=== PATIENT | male | born 1950 | race Hispanic/Latino ===

== ENCOUNTER 2017-03-16 09:22 | Observation (INO) | payer BC, MEDICARE, OTHER ==
[2017-03-14 10:44] LABS: BASOPHILS % 0.4 % (0.0-1.0); EOSINOPHILS # (AUTO) 0.2 (0.0-0.4); EOSINOPHILS % 2.3 % (0.0-6.0); HEMATOCRIT 39.3 % (38.2-49.6); HEMOGLOBIN 13.1 g/dL (14.0-18.0); LYMPHOCYTES # (AUTO) 2.1 (1.0-3.2); LYMPHOCYTES % 22.2 % (18.0-39.1); MEAN CORPUSCULAR HEMOGLOBIN 31.3 pg (28-32); MEAN CORPUSCULAR HGB CONC 33.3 g/dL (31-35); MEAN CORPUSCULAR VOLUME 93.8 fL (81-99); MONOCYTES # (AUTO) 0.9 (0.2-0.8); MONOCYTES % 8.9 % (4.4-11.3); NEUTROPHILS # (AUTO) 6.3 (2.1-6.9); NEUTROPHILS % 65.8 % (38.7-80.0); PLATELET COUNT 245 x10e3/uL (140-360); RED BLOOD COUNT 4.19 x10e6/uL (4.3-5.7); RED CELL DISTRIBUTION WIDTH 13.7 % (11.7-14.4)
[2017-03-14 10:55] LABS: INR 0.96; PROTHROMBIN TIME 13.3 seconds (11.9-14.5)
[2017-03-14 10:56] LABS: PARTIAL THROMBOPLASTIN TIME 28.8 seconds (23.8-35.5)
[2017-03-14 10:59] LABS: ANION GAP 14.1 mmol/L (8-16); BLOOD UREA NITROGEN 19 mg/dL (7-26); BUN/CREATININE RATIO 19 (6-25); CALCIUM 9.8 mg/dL (8.4-10.2); CARBON DIOXIDE 28 mmol/L (22-29); CHLORIDE 103 mmol/L (98-107); CREATININE, SERUM 0.98 mg/dL (0.72-1.25); EST GLOMERULAR FILTRATION RATE > 60 ML/MIN (60-); GLUCOSE 97 mg/dL (74-118); POTASSIUM 5.1 mmol/L (3.5-5.1); SODIUM 140 mmol/L (136-145)
--- NOTE | 2017-03-14 11:30 | Diagnostic Imaging Report ---
PROCEDURE: Frontal and lateral views of the chest. COMPARISON: Chest 2 views 01/06/2016. INDICATIONS: PREOPERATIVE CHEST XRAY FOR LUMBAR SPINE SURGERY FINDINGS: Lines/tubes: None. Lungs: The lungs are well inflated and clear. There is no evidence of pneumonia or pulmonary edema. Pleura: There is no pleural effusion or pneumothorax. Heart and mediastinum: The heart and the mediastinum are normal. Atherosclerotic calcifications. Bones: No acute bony abnormality. Degenerative changes of the thoracic spine. IMPRESSION: No acute radiographic abnormality. Dictated by: Bentley Patel M.D. on 03/14/2017 at 11:40 Electronically approved by: Bentley Patel M.D. on 03/14/2017 at 11:40
[~2017-03-16] VITALS: Ht 177.8 cm; Wt 85.3 kg
[~2017-03-16 09:22] MED LIST: ALLOPURINOL100 MG PO; AMLODIPINE BESYL5 MG PO; BENICAR40 MG PO; CRESTOR10 MG PO; ENABLEX15 MG PO; HYDROCHLOROTHIA25 MG PO; LIDOCAINE HCL (LTA) 4 ML SOLN ONE; LISINOPRIL10 MG PO; MELOXICAM7.5 MG PO; NORCO 7.5-3251 EACH PO; NORVASC5 MG PO; OXYBUTYNIN CHLOR5 MG PO
--- OUTSIDE RECORDS SUMMARY | 2017-03-16 09:24 | XMS REPORT ---
[facility] Address Unknown Phone Unavailable Care Team Providers Care Alternative Dispute Resolution Mediator Name Role Phone KELLEE TOBIAS Unavailable Unavailable Problems This patient has no known problems. Allergies, Adverse Reactions, Alerts This patient has no known allergies or adverse reactions. Medications This patient has no known medications. Results Test Description Test Time Test Comments Text Results Atomic Results Result Comments CHEST 2 VIEWS [place] [address] Patient Name: AZAM PRIETO MR #: [id number] : 1950 Age/Sex: 66/M Req # : [id number] Adm Physician: Ordered by: KELLEE TOBIAS MD Report #: [id number] Location: OR Room/Bed: Procedure: [id number] DX/CHEST 2 VIEWS Exam Date: 03/14/17 Exam Time: 1110 REPORT STATUS: Signed PROCEDURE: Frontal and lateral views of the chest. COMPARISON: Chest 2 views 01/06/2016. INDICATIONS: PREOPERATIVE CHEST XRAY FOR LUMBAR SPINE SURGERY FINDINGS: Lines/ tubes: None. Lungs: The lungs are well inflated and clear. There is no evidence of pneumonia or pulmonary edema. Pleura: There is no pleural effusion or pneumothorax. Heart and mediastinum: The heart and the mediastinum are normal. Atherosclerotic calcifications. Bones: No acute bony abnormality. Degenerative changes of the thoracic spine. IMPRESSION: No acute radiographic abnormality. Dictated by: Malika Patel M.D. on 03/14/2017 at 11:40 Electronically approved by: Malika Patel M.D. on 03/14/2017 at 11:40 Dictated By: MALIKA PATEL MD [id number] Transcribed By: BOB on 03/14/17 1140 COPY TO: KELLEE TOBIAS MD
[2017-03-16] MEDS ORDERED: CEFAZOLIN SOD 1 GM VIAL ONE (10:46)
[2017-03-16] MEDS ORDERED: LIDOCAINE 1% W/EPINEPHRINE 20 ML VIAL ONE (11:26)
[2017-03-16] MEDS ORDERED: THROMBIN FOR SOLN 5,000 UNIT VIAL ONE (11:26)
[2017-03-16] MEDS ORDERED: BACITRACIN 50,000 UNIT VIAL ONE (11:27)
[2017-03-16] MEDS ORDERED: GELATIN SPONGE SZ 100 ONE (12:01)
[2017-03-16] MEDS ORDERED: ONDANSETRON HCL INJ 2 MG/ML VIAL IV PRN (13:00)
[2017-03-16] MEDS ORDERED: HYDROMORPHONE 2MG/ML INJ IV PRN (13:00)
[2017-03-16] MEDS ORDERED: ACETAMINOPHEN 325 MG TAB PO PRN (13:00)
[2017-03-16] MEDS ORDERED: MORPHINE SULFATE 5 MG/ML VIAL IM PRN (13:00)
[2017-03-16] MEDS ORDERED: CARISOPRODOL 350 MG TAB PO PRN (13:00)
[2017-03-16] MEDS ORDERED: PROMETHAZINE HCL (IM) 25 MG/ML VIAL IM PRN (13:00)
[2017-03-16] MEDS ORDERED: MAGNESIUM/ALUMINUM/SIMETHICONE 30 ML UDC PO PRN (13:00)
[2017-03-16] MEDS ORDERED: OXYCODONE/ACETAMINOPHEN 5-325 1 EACH TABLET PO PRN (13:00)
--- NOTE | 2017-03-16 13:35 | Operative Report ---
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 PROCEDURE: Left L2-3 laminotomy, medial facetectomy, microsurgical lateral recess decompression, and microsurgical diskectomy, 30529. ANESTHESIA: General. INDICATIONS: The patient is a 66-year-old man who presents with left leg pain and is found to have left L2-3 lateral recess stenosis due to a combination of facet and ligamentous hypertrophy and a disk herniation. He was taken to the operating room for a microsurgical lateral recess decompression. PROCEDURE: After the induction of general anesthesia, the patient was placed on the operating table in prone position over a Jair frame. The lumbar region was prepped and draped in sterile fashion. A preoperative x-ray was obtained. A small midline incision was created. The lumbar fascia was opened to the left of midline, and a subperiosteal dissection was carried out to expose the left side of the L2 and L3 laminae and the medial aspect of the facet joint. A 2nd x-ray confirmed correct localization. The operating microscope was brought in. A high-speed drill equipped with a leandro bur was used to drill the inferior aspect of the lamina of L2, the superior aspect of the lamina of L3, and the medial aspect of the L2-3 facet joint on the left side. The markedly hypertrophic ligamentum flavum was carefully resected, and the dural sac and the L3 nerve root were fully exposed and decompressed. The L3 nerve root was then retracted medially, and the disk was inspected. A broad-based subligamentous disk herniation was noted. The posterior longitudinal ligament and the posterior annulus of the disk were incised with a number 11 blade. The herniated disk material was retrieved and removed. The loose contents of the L2-3 disk were evacuated with curettes and pituitary rongeurs. Meticulous hemostasis was secured. The retractor was removed. The lumbar fascia was closed with 0 Vicryl sutures. Subcutaneous layer was closed with 2-0 Vicryl sutures. The skin was closed with 3-0 Monocryl sutures in subcuticular fashion. Steri-Strips and a dressing were applied. The patient was awakened, extubated, and taken to the postanesthesia care unit in stable condition. No intraoperative complications were encountered. Estimated blood loss was 10 mL. Job#: [id number]
[2017-03-16] MEDS ORDERED: FENTANYL CITRATE/PF 100MCG/2 ML INJ ONE ×2 (13:42→18:30)
[2017-03-16] MEDS ORDERED: CEFAZOLIN SOD 1 GM/NS 50ML 50 ML IV SCH (14:00)
[2017-03-16] MEDS: LACTATED RINGER'S 1,000 ML IV SCH ×2 (14:10→21:35)
[2017-03-16 14:18] VITALS: BP 135/72
[2017-03-16 14:35] VITALS: BP 135/72
[2017-03-16 15:36] VITALS: BP 135/72
[2017-03-16] MEDS ORDERED: LIDOCAINE HCL 2% LOCAL INJ 5 ML SDV VIAL INJ ONE (18:21)
[2017-03-16] MEDS ORDERED: SEVOFLURANE INHAL SOLN 250 ML PEN BTL ONE (18:21)
[2017-03-16] MEDS ORDERED: DEXAMETHASONE SOD PHOS INJ 4 MG/ML VIAL ONE (18:21)
[2017-03-16] MEDS ORDERED: EPHEDRINE SULFATE INJ 50 MG/10 ML SYR ONE (18:21)
[2017-03-16] MEDS ORDERED: ONDANSETRON HCL INJ 2 MG/ML VIAL ONE (18:21)
[2017-03-16] MEDS ORDERED: NEOSTIGMINE 5 MG/5ML SYR ONE (18:21)
[2017-03-16] MEDS ORDERED: GLYCOPYRROLATE INJ 1MG/ 5 ML SYR ONE (18:21)
[2017-03-16] MEDS ORDERED: ROCURONIUM BROMIDE 10 MG/ML 5ML VIAL ONE (18:21)
[2017-03-16] MEDS ORDERED: PROPOFOL IV EMULSION 10 MG/ML 20 ML VIAL ONE (18:21)
[2017-03-16] MEDS ORDERED: MIDAZOLAM HCL 2 MG/2 ML VIAL ONE (18:30)
[2017-03-16 19:10] VITALS: BP 123/70
[2017-03-16 20:05] VITALS: BP 123/70
[2017-03-16] MEDS ORDERED: SIMVASTATIN 20 MG TAB PO SCH (21:00)
[2017-03-16] MEDS ORDERED: ZOLPIDEM TARTRATE 5 MG TAB PO PRN (21:00)
[2017-03-16] MEDS: CEFAZOLIN SOD 1 GM VIAL IV SCH (21:35)
[2017-03-17] VITALS: BP 112/58
[2017-03-17 03:30] VITALS: BP 111/66
[2017-03-17] MEDS: CEFAZOLIN SOD 1 GM VIAL IV SCH ×2 (03:41→11:22)
[2017-03-17] MEDS: LACTATED RINGER'S 1,000 ML IV SCH (06:09)
[2017-03-17 08:23] VITALS: BP 104/53
[2017-03-17] MEDS ORDERED: OXYBUTYNIN CHLORIDE 5 MG TAB PO SCH (09:00)
[2017-03-17] MEDS ORDERED: ALLOPURINOL 100 MG TAB PO SCH (09:00)
[2017-03-17] MEDS ORDERED: HYDROCHLOROTHIAZIDE 25 MG TAB PO SCH (09:00)
[2017-03-17] MEDS ORDERED: MELOXICAM 7.5 MG TAB PO SCH (09:00)
[2017-03-17] MEDS ORDERED: LISINOPRIL 10 MG TAB PO SCH (09:00)
[2017-03-17] MEDS ORDERED: SIMVASTATIN 40 MG TAB PO SCH (09:00)
[2017-03-17] MEDS ORDERED: OXYBUTYNIN CHLORIDE XL 5 MG TAB PO SCH (09:00)
[2017-03-17 09:01] VITALS: BP 104/53
== END 2017-03-17 11:34 | disposition home or self-care (01) ==
LOC: OR 09:22 → IMCU 13:58
PROVIDERS: ADMIT Neurological Surgery; ATTEND Neurological Surgery
DX: M48.062 Spinal stenosis, lumbar region with neurogenic claudication (principal); M51.26 Other intervertebral disc displacement, lumbar region; I10 Essential (primary) hypertension; E78.5 Hyperlipidemia, unspecified
CPT/HCPCS: 36415; 63047; 71046; 72020; 80048; 85025; 85610; 85730; 86850; 86900; 88304; 93005; G0378 ×2; J0690 ×2; J1100; J1170; J2001; J2250; J2270; J2405; J7120 ×2

== ENCOUNTER 2024-07-12 08:28 | Inpatient (IN) | payer MEDICARE ==
[2024-07-11 11:56] LABS: BASOPHILS % 0.2 % (0.0-1.0); EOSINOPHILS # (AUTO) 0.1 (0.0-0.4); EOSINOPHILS % 0.7 % (0.0-6.0); HEMATOCRIT 40.2 % (38.2-49.6); HEMOGLOBIN 13.1 g/dL (14.0-18.0); LYMPHOCYTES # (AUTO) 1.4 (1.0-3.2); LYMPHOCYTES % 8.3 % (18.0-39.1); MEAN CORPUSCULAR HEMOGLOBIN 31.6 pg (28-32); MEAN CORPUSCULAR HGB CONC 32.6 g/dL (31-35); MEAN CORPUSCULAR VOLUME 96.9 fL (81-99); MONOCYTES # (AUTO) 0.8 (0.2-0.8); NEUTROPHILS # (AUTO) 14.5 (2.1-6.9); NEUTROPHILS % 85.2 % (38.7-80.0); PLATELET COUNT 250 x10e3/uL (140-360); RED BLOOD COUNT 4.15 x10e6/uL (4.3-5.7); WHITE BLOOD COUNT 16.96 x10e3/uL (4.8-10.8)
[2024-07-11 12:17] LABS: ANION GAP 14.7 mmol/L (8-16); CALCIUM 9.6 mg/dL (8.4-10.2); CREATININE, SERUM 0.98 mg/dL (0.72-1.25); POTASSIUM 4.7 mmol/L (3.5-5.1)
[~2024-07-12] VITALS: Ht 175.3 cm; Wt 79.8 kg
[2024-07-12] VITALS (9 sets, daily range): BP systolic 121–146; BP diastolic 66–72; PULSE 54–78; RESP 14–18; TEMP 97.4–97.8; O2SAT 95–99
[~2024-07-12 08:28] MED LIST changes: +AMOXICILLIN250 MG PO; +COQ-10100 MG PO; +DICLOFENAC PO; +DIPHENHYDRAMINE25 MG PO; +FLOMAX0.4 MG PO; +GLUCOSAMINE1000 MG PO; +LASIX40 MG PO; -LIDOCAINE HCL (LTA) 4 ML SOLN ONE; +METOPROLOL SUCC50 MG PO; +NEURONTIN300 MG PO; +OMEGA 3 1,0001 EACH PO; +PREDNISONE20 MG PO; +TYLENOL325 MG PO; +VERAPAMIL ER120 M1 PO; +VIAGRA100 MG PO; +ZETIA10 MG PO
[2024-07-12] MEDS ORDERED: PROPOFOL IV EMULSION 10 MG/ML 20 ML VIAL ONE (09:09)
[2024-07-12] MEDS ORDERED: LIDOCAINE HCL 2% LOCAL INJ 5 ML SDV VIAL INJ ONE (09:10)
[2024-07-12] MEDS ORDERED: FENTANYL CITRATE/PF 100MCG/2 ML INJ ONE (09:10)
[2024-07-12] MEDS: SODIUM CHLORIDE 0.9% 1000ML 1,000 ML ONE (09:16)
[2024-07-12] MEDS: CEFTRIAXONE 1 GM VIAL ONE (09:17)
[2024-07-12] MEDS: GENTAMICIN 80MG/NS 100 ML 200 ML IV ONE (09:17)
[2024-07-12] MEDS ORDERED: ROCURONIUM BROMIDE 1 ML IV ONE ×2 (10:50→11:36)
[2024-07-12] MEDS ORDERED: DEXAMETHASONE SOD PHOS INJ 4 MG/ML SDV ONE (11:05)
[2024-07-12] MEDS ORDERED: ONDANSETRON HCL INJ 2MG/ML 2ML 2 MG/ML VIAL ONE (11:05)
[2024-07-12] MEDS ORDERED: FAMOTIDINE 20 MG/2 ML VIAL IV ONE (11:07)
[2024-07-12] MEDS ORDERED: ACETAMINOPHEN 1000 MG/100 ML 100 ML IV ONE (11:17)
[2024-07-12] MEDS: SODIUM CHLORIDE 0.9% 1000ML 1,000 ML IV SCH (12:30)
[2024-07-12] MEDS ORDERED: DIPHENHYDRAMINE HCL 25 MG CAP PO PRN (12:30)
[2024-07-12] MEDS ORDERED: ACETAMINOPHEN 1000 MG/100 ML IV PRN (12:30)
[2024-07-12] MEDS ORDERED: ONDANSETRON HCL INJ 2MG/ML 2ML 2 MG/ML VIAL IV PRN (12:30)
[2024-07-12] MEDS: FENTANYL CITRATE/PF 100MCG/2 ML INJ ONE (12:34)
[2024-07-12] MEDS ORDERED: SUGAMMADEX SODIUM 200 MG/2 ML VIAL IV ONE ×2 (12:45)
[2024-07-12 12:55] LABS: BASOPHILS % 0.2 % (0.0-1.0); EOSINOPHILS # (AUTO) 0.1 (0.0-0.4); EOSINOPHILS % 0.8 % (0.0-6.0); HEMATOCRIT 32.9 % (38.2-49.6); HEMOGLOBIN 10.6 g/dL (14.0-18.0); LYMPHOCYTES # (AUTO) 1.4 (1.0-3.2); LYMPHOCYTES % 16.2 % (18.0-39.1); MEAN CORPUSCULAR HEMOGLOBIN 31.2 pg (28-32); MEAN CORPUSCULAR HGB CONC 32.2 g/dL (31-35); MEAN CORPUSCULAR VOLUME 96.8 fL (81-99); MONOCYTES # (AUTO) 0.5 (0.2-0.8); MONOCYTES % 5.8 % (4.4-11.3); NEUTROPHILS # (AUTO) 6.6 (2.1-6.9); NEUTROPHILS % 76.7 % (38.7-80.0); PLATELET COUNT 188 x10e3/uL (140-360); RED CELL DISTRIBUTION WIDTH 14.3 % (11.7-14.4); WHITE BLOOD COUNT 8.58 x10e3/uL (4.8-10.8)
[2024-07-12 13:15] LABS: ANION GAP 12.2 mmol/L (8-16); CALCIUM 7.6 mg/dL (8.4-10.2); CREATININE, SERUM 0.77 mg/dL (0.72-1.25); POTASSIUM 4.2 mmol/L (3.5-5.1)
[2024-07-12] MEDS ORDERED: SEVOFLURANE INHAL SOLN 250 ML PEN BTL ONE (13:19)
[2024-07-12] MEDS: ACETAMINOPHEN/CODEINE 300MG - 30MG TAB PO PRN (15:42)
[2024-07-12] MEDS: SENNA-S TABLET PO SCH (17:02)
[2024-07-12] MEDS ORDERED: DICLOFENAC35 MG (19:21)
[2024-07-12] MEDS ORDERED: DICYCLOMINE HCL10 MG PO (19:21)
[2024-07-12] MEDS ORDERED: MELATONIN3 MG PO (19:21)
[2024-07-12] MEDS: PHENAZOPYRIDINE HCL 100 MG TAB PO PRN (20:26)
[2024-07-13] VITALS (9 sets, daily range): BP systolic 116–159; BP diastolic 60–75; PULSE 45–67; RESP 15–20; TEMP 94.9–98.8; O2SAT 92–100
[2024-07-13 08:07] LABS: BASOPHILS % 0.3 % (0.0-1.0); EOSINOPHILS # (AUTO) 0.1 (0.0-0.4); EOSINOPHILS % 0.4 % (0.0-6.0); HEMATOCRIT 33.6 % (38.2-49.6); HEMOGLOBIN 11.1 g/dL (14.0-18.0); LYMPHOCYTES # (AUTO) 1.1 (1.0-3.2); MEAN CORPUSCULAR HEMOGLOBIN 31.4 pg (28-32); MEAN CORPUSCULAR VOLUME 95.2 fL (81-99); MONOCYTES % 8.5 % (4.4-11.3); NEUTROPHILS # (AUTO) 9.8 (2.1-6.9); NEUTROPHILS % 81.3 % (38.7-80.0); PLATELET COUNT 217 x10e3/uL (140-360); RED BLOOD COUNT 3.53 x10e6/uL (4.3-5.7)
[2024-07-13 08:26] LABS: ANION GAP 12.7 mmol/L (8-16); CALCIUM 8.5 mg/dL (8.4-10.2); CREATININE, SERUM 0.82 mg/dL (0.72-1.25); POTASSIUM 4.7 mmol/L (3.5-5.1)
[2024-07-13] MEDS ORDERED: PREDNISONE10 MG PO (08:55)
[2024-07-13] MEDS: PREDNISONE 10 MG TAB PO SCH (10:38)
[2024-07-13] MEDS: DICYCLOMINE HCL 10 MG CAP PO SCH (10:38)
[2024-07-13] MEDS: ACETAMINOPHEN 325 MG TAB PO SCH (16:13)
[2024-07-13] MEDS: TAMSULOSIN HCL 0.4 MG CAP PO SCH (16:13)
[2024-07-13] MEDS ORDERED: MELATONIN 3 MG TAB PO SCH (21:00)
[2024-07-13] MEDS: VERAPAMIL HCL 120 MG TABSR PO SCH (21:15)
[2024-07-13] MEDS: GABAPENTIN 300 MG CAP PO SCH (21:16)
[2024-07-13] MEDS: MELATONIN 3 MG TAB PO SCH (21:16)
[2024-07-14] VITALS (11 sets, daily range): BP systolic 140–170; BP diastolic 66–84; PULSE 55–67; RESP 16–20; TEMP 97.5–98; O2SAT 92–100
[2024-07-14 08:15] LABS: BASOPHILS % 0.2 % (0.0-1.0); EOSINOPHILS # (AUTO) 0.4 (0.0-0.4); EOSINOPHILS % 3.6 % (0.0-6.0); HEMATOCRIT 34.8 % (38.2-49.6); HEMOGLOBIN 11.5 g/dL (14.0-18.0); LYMPHOCYTES # (AUTO) 1.8 (1.0-3.2); MEAN CORPUSCULAR HEMOGLOBIN 31.3 pg (28-32); MEAN CORPUSCULAR VOLUME 94.8 fL (81-99); MONOCYTES # (AUTO) 1.1 (0.2-0.8); MONOCYTES % 10.4 % (4.4-11.3); NEUTROPHILS # (AUTO) 7.3 (2.1-6.9); NEUTROPHILS % 68.1 % (38.7-80.0); PLATELET COUNT 215 x10e3/uL (140-360); RED BLOOD COUNT 3.67 x10e6/uL (4.3-5.7); WHITE BLOOD COUNT 10.75 x10e3/uL (4.8-10.8)
[2024-07-14] MEDS: OXYBUTYNIN CHLORIDE 5 MG TAB PO SCH (08:17)
[2024-07-14 08:39] LABS: ANION GAP 12.5 mmol/L (8-16); CALCIUM 8.9 mg/dL (8.4-10.2); CREATININE, SERUM 0.82 mg/dL (0.72-1.25); POTASSIUM 4.5 mmol/L (3.5-5.1)
[2024-07-14] MEDS ORDERED: MAGNESIUM HYDROXIDE 30 ML UDC PO PRN (10:15)
[2024-07-14] MEDS: POLYETHYLENE GLYCOL 3350 17 GM PACK PO SCH (10:32)
[2024-07-14] MEDS: VALSARTAN 80 MG TAB PO SCH (10:32)
[2024-07-14] MEDS: SIMVASTATIN 20 MG TAB PO SCH (21:09)
[2024-07-15] VITALS (9 sets, daily range): BP systolic 148–176; BP diastolic 78–92; PULSE 58–91; RESP 16–20; TEMP 97.7–98.1; O2SAT 95–100
[2024-07-15 05:31] LABS: BASOPHILS % 0.3 % (0.0-1.0); EOSINOPHILS # (AUTO) 0.3 (0.0-0.4); EOSINOPHILS % 3.1 % (0.0-6.0); HEMATOCRIT 35.2 % (38.2-49.6); HEMOGLOBIN 11.9 g/dL (14.0-18.0); LYMPHOCYTES # (AUTO) 2.2 (1.0-3.2); LYMPHOCYTES % 21.8 % (18.0-39.1); MEAN CORPUSCULAR HEMOGLOBIN 31.6 pg (28-32); MEAN CORPUSCULAR HGB CONC 33.8 g/dL (31-35); MEAN CORPUSCULAR VOLUME 93.6 fL (81-99); MONOCYTES # (AUTO) 1.1 (0.2-0.8); MONOCYTES % 11.3 % (4.4-11.3); NEUTROPHILS # (AUTO) 6.3 (2.1-6.9); NEUTROPHILS % 62.9 % (38.7-80.0); PLATELET COUNT 215 x10e3/uL (140-360); RED BLOOD COUNT 3.76 x10e6/uL (4.3-5.7)
[2024-07-15 06:05] LABS: ANION GAP 12.6 mmol/L (8-16); CALCIUM 8.9 mg/dL (8.4-10.2); CREATININE, SERUM 0.84 mg/dL (0.72-1.25); POTASSIUM 4.6 mmol/L (3.5-5.1)
[2024-07-15] MEDS: EZETIMIBE 10 MG TAB PO SCH (09:46)
== END 2024-07-15 20:15 | disposition home or self-care (01) | DRG 713 ==
LOC: OR 08:28 → PACU V 13:04 → MED/SURG 14:31
PROVIDERS: ADMIT Internal Medicine; ATTEND Internal Medicine
PROC: 0VB08ZZ Excision of Prostate, Via Natural or Artificial Opening Endoscopic (ICD-10-PCS; 2024-07-12)
PROC: 0T7D8ZZ Dilation of Urethra, Via Natural or Artificial Opening Endoscopic (ICD-10-PCS; 2024-07-12)
PROC: BT140ZZ Fluoroscopy of Kidneys, Ureters and Bladder using High Osmolar Contrast (ICD-10-PCS; 2024-07-12)
PROC: 0V508ZZ Destruction of Prostate, Via Natural or Artificial Opening Endoscopic (ICD-10-PCS; principal; 2024-07-12 10:50)
DX: N40.1 Benign prostatic hyperplasia with lower urinary tract symptoms (principal); D62 Acute posthemorrhagic anemia; R31.0 Gross hematuria; I16.0 Hypertensive urgency; I10 Essential (primary) hypertension; M06.9 Rheumatoid arthritis, unspecified; E78.5 Hyperlipidemia, unspecified; N52.9 Male erectile dysfunction, unspecified; N13.9 Obstructive and reflux uropathy, unspecified; N35.919 Unspecified urethral stricture, male, unspecified site; N32.81 Overactive bladder; N39.41 Urge incontinence; N32.89 Other specified disorders of bladder; Z79.52 Long term (current) use of systemic steroids; Z87.440 Personal history of urinary (tract) infections
CPT/HCPCS: 36415; 51798; 71046; 74420; 80048; 83735; 85025; 87086; 88305; 93005; 94799; 99252; C1758; J0696; J1100; J1308; J1580; J2003; J2405; J7030; J7512